=== PATIENT | male | born 1970 | race Caucasian/White ===

== ENCOUNTER 2021-11-25 06:39 | Outpatient (CLI) | payer OTHER, SELFPAY | END 2021-11-25 06:40 | disposition home or self-care (01) | LOC: INJ CL 06:40 | PROVIDERS: PCP Family Medicine; Visit Provider Family Medicine | DX: M54.16 Radiculopathy, lumbar region (principal); M51.36 Other intervertebral disc degeneration, lumbar region | CPT/HCPCS: 62323; J0702; Q9966 ==

== ENCOUNTER 2022-01-06 12:13 | Outpatient (CLI) | payer OTHER, SELFPAY | END 2022-01-06 12:14 | disposition home or self-care (01) | LOC: INJ CL 12:13 | PROVIDERS: PCP Family Medicine; Visit Provider Family Medicine | DX: M51.26 Other intervertebral disc displacement, lumbar region (principal); M54.16 Radiculopathy, lumbar region | CPT/HCPCS: 64483; J1100; Q9966 ==